=== PATIENT | female | born 2000 | race Two or more races ===

== ENCOUNTER 2023-08-05 06:29 | Day surgery (SDC) | payer BC, SELFPAY ==
[2023-08-05] VITALS (9 sets, daily range): BP systolic 99–139; BP diastolic 59–94; BMI 21.8
[2023-08-05] MEDS: TYLENOL 1000 MG PO (08:40)
[2023-08-05] MEDS: NORMOSOL-R 1000 IV (08:41)
== END 2023-08-05 12:45 | disposition home or self-care (01) ==
LOC: SDS 06:29
PROVIDERS: ATTENDING PHYSICIAN Surgery
DX: K60.1 Chronic anal fissure (principal)
CPT/HCPCS: 46200